=== PATIENT | male | born 1950 | race Caucasian/White ===

== ENCOUNTER 2019-10-14 10:29 | Outpatient (CLI) | payer MEDICARE, SELFPAY ==
[2019-10-14 11:54] LABS: Alanine Aminotransferase 25 U/L (16-63); Albumin Level 3.9 g/dL (3.4-5.0); Alkaline Phosphatase 70 U/L (46-116); Anion Gap 11.2 mmol/L (7-16); Aspartate Amino Transferase 19 U/L (15-37); Bilirubin,Total 0.3 mg/dL (0.00-1.00); Blood Urea Nitrogen 23 mg/dL (7-18); Calcium 8.8 mg/dL (8.5-10.1); Carbon Dioxide 30 mmol/L (21-32); Chloride 102 mmol/L (98-108); Estimated Glomerular Filt Rate 49; Glucose 108 mg/dL (70-99); Osmolality Calculated 292 mOsm/kg (285-295); Potassium 4.2 mmol/L (3.5-5.1); Sodium 139 mmol/L (136-145); Total Protein 6.9 g/dL (6.4-8.2)
== END 2019-10-14 10:30 | disposition home or self-care (01) ==
PROVIDERS: PCP Internal Medicine; Visit Provider Urology
DX: C67.2 Malignant neoplasm of lateral wall of bladder (principal); C67.4 Malignant neoplasm of posterior wall of bladder; C67.8 Malignant neoplasm of overlapping sites of bladder; N40.1 Benign prostatic hyperplasia with lower urinary tract symptoms
CPT/HCPCS: 36415; 80053; 84153

== ENCOUNTER 2022-05-10 08:11 | Outpatient (CLI) | payer MEDICARE, SELFPAY ==
[2022-05-10 09:03] LABS: Alanine Aminotransferase 18 U/L (16-63); Albumin Level 3.8 g/dL (3.4-5.0); Alkaline Phosphatase 60 U/L (46-116); Anion Gap 4 mmol/L (8-16); Aspartate Amino Transferase 17 U/L (15-37); Bilirubin,Total 0.6 mg/dL (0.00-1.00); Blood Urea Nitrogen 27 mg/dL (7-18); Calcium 8.8 mg/dL (8.5-10.1); Carbon Dioxide 30 mmol/L (21-32); Chloride 102 mmol/L (98-108); Estimated Glomerular Filt Rate 43; Glucose 96 mg/dL (70-99); Osmolality Calculated 287 mOsm/kg (285-295); Potassium 4.6 mmol/L (3.5-5.1); Prostate Specific Antigen 1.1 ng/mL (< OR = 4.0); Sodium 136 mmol/L (136-145); Total Protein 6.6 g/dL (6.4-8.2)
== END 2022-05-10 08:12 | disposition home or self-care (01) ==
LOC: CHSLAB 08:15
PROVIDERS: PCP Internal Medicine; Visit Provider Urology
DX: N40.1 Benign prostatic hyperplasia with lower urinary tract symptoms (principal)
CPT/HCPCS: 36415; 80053; 84153

== ENCOUNTER 2022-06-28 01:48 | Day surgery (SDC) | payer MEDICARE, OTHER, SELFPAY ==
[2022-06-25 12:54] VITALS: BMI 27.5
[2022-06-28 08:26] VITALS: BP 140/91; PULSE 69; RESP 20; TEMP 35.9; O2SAT 100
[2022-06-28] MEDS: LACTATED RINGERS 1,000 ML 150 ML IV CONT (08:30)
--- NOTE | 2022-06-28 09:10 | P.PNAN_ITS ---
Anes - Initial Pre Proc Eval Procedure: Operation Date: 06/28/22 09:30 Proposed Procedures p Colonoscopy - Sandro Angel DO Date/Time: 06/28/22 09:10 Surgeon: Sandro Angel DO Pre Op Diagnosis: sigmoid adenoma Patient Data Age: 71 Gender: M Height: 1.91 m Weight: 98.2 kg Last Vital Signs Temp 96.7 F L 06/28/22 08:26 Pulse 69 06/28/22 08:26 Resp 20 06/28/22 08:26 BP 140/91 H 06/28/22 08:26 Pulse Ox 100 06/28/22 08:26 O2 Del Method Room Air 06/28/22 08:26 Allergies Allergy/AdvReac Type Severity Reaction Status Date / Time egg Allergy Other Verified 06/28/22 08:25 Penicillins Allergy Other Verified 06/28/22 08:25 Home Medications Medication Instructions Recorded Confirmed Type aspirin 81 mg tablet 81 mg PO DAILY 06/25/22 06/28/22 History finasteride 5 mg tablet 5 mg PO DAILY 06/25/22 06/28/22 History lisinopril 20 1 tablet PO DAILY 06/25/22 06/28/22 History mg-hydrochlorothiazide 12.5 mg tablet Patient hx anesthesia problems: none Family hx anesthesia problems: none Results Review: All pre-operative results and documents have been reviewed as part of the pre-operative evaluation. [facility] Social History Social History Smoking status: Former smoker Tobacco type: cigarettes Alcohol intake: current Drinks per week: 3 Alcohol use details: beer Substance use type: does not use Living arrangements: with family Spiritual care concerns: No Anes - Eval Final PreProcedure Day of Procedure 06/28/22 09:10 Patient weight: overweight Heart: regular rate and rhythm Lungs: clear to auscultation Airway: Mallampati scale class II Neurological: alert and oriented Last oral intake: >/= 8 hours ASA classification: III Emergent: no Anesthetic plan: proceed Anesthesia type and monitoring: general GIVS and standard monitoring Results Review: All pre-operative results and documents have been reviewed as part of the pre- operative evaluation. Informed Consent: The patient's anesthetic plan and its attendant risks and benefits were discussed with the patient/family/POA. Questions were solicited and answers provided to the satisfaction of the patient/family/POA.
--- NOTE | 2022-06-28 09:48 | PM.IMHP ---
H&P: HPI History of Present Illness Date/Time: 06/28/22 09:48 Chief Complaint: history of colon polyps Narrative: this is a 71-year-old man who presents for colonoscopy. His last colonoscopy was 5 years ago and polyps were removed at that time. He denies any other changes since his last colonoscopy. He denies family history of colon cancer. Review of Systems Review of Systems: All systems reviewed & are unremarkable except as noted in HPI and below Constitutional: Constitutional: Denies chills, Denies fever(s), Denies headache(s) and Denies weight loss Eyes: Eyes: Denies change in vision ENT: Denies dizziness, Denies headache(s), Denies neck mass and Denies throat swelling Cardiovascular: Cardiovascular: Denies chest pain, Denies lightheadedness and Denies dyspnea Respiratory: Respiratory: Denies cough, Denies dyspnea and Denies wheezing Gastrointestinal: Gastrointestinal: Denies abdominal pain, Denies change in bowel habits, Denies nausea and Denies vomiting Genitourinary: Genitourinary: Denies hematuria and Denies dysuria Musculoskeletal: Musculoskeletal: Reports as per HPI Integumentary/Breasts: Skin/Breast: Reports as per HPI Neurologic: Denies dizziness and Denies headache(s) Allergic/Immunologic: Allergic/Immunologic: Denies throat swelling and Denies wheezing PMFSH Social History Social History Smoking status: Former smoker Tobacco type: cigarettes Alcohol intake: current Drinks per week: 3 Alcohol use details: beer Substance use type: does not use Living arrangements: with family Spiritual care concerns: No Meds Home Medications and Allergies Home Medications Medication Instructions Recorded Confirmed Type aspirin 81 mg tablet 81 mg PO DAILY 06/25/22 06/28/22 History finasteride 5 mg tablet 5 mg PO DAILY 06/25/22 06/28/22 History lisinopril 20 1 tablet PO DAILY 06/25/22 06/28/22 History mg-hydrochlorothiazide 12.5 mg tablet Allergies Allergy/AdvReac Type Severity Reaction Status Date / Time egg Allergy Other Verified 06/28/22 08:25 Penicillins Allergy Other Verified 06/28/22 08:25 Vital Signs Vital Signs - 24 hr 06/28/22 08:26 Temperature 35.9 C L Pulse Rate 69 Respiratory Rate 20 Blood Pressure 140/91 H Pulse Oximetry 100 Oxygen Delivery Room Air Exam Const: General: no acute distress and alert Orientation/consciousness: patient oriented x3 HENMT: Head: normocephalic and atraumatic Ears: hearing grossly normal bilaterally Face/Nose/Sinus: Normal nares present Mouth: Yes Normal oral and palatal mucosa present Eyes: Periorbital: periorbital findings normal Sclera: sclerae normal EOM: EOMs intact bilaterally Neck: Neck: normal visual inspection, no lymphadenopathy and trachea midline Chest: Chest palpation & inspection: normal inspection of the chest Resp: Effort & Inspection: normal respiratory effort Auscultation: clear to auscultation bilaterally Cardio: Jugular venous distension: no JVD Rate: regular rate Rhythm: regular rhythm Heart sounds: S1 normal heart sound present and S2 normal heart sound present Peripheral pulses: Peripheral pulses 2+ throughout GI: Inspection: normal to inspection GI Palp: Yes Soft to palpation, No Tenderness to palpation present (GI), No Guarding due to palpation present (GI) and No Rebound tenderness present Percussion: Yes normal to percussion Auscultation: normal bowel sounds : General: Yes no CVA tenderness Back/Spine/Pelvis: Back: no CVA tenderness Neuro: General: patient oriented x3, no focal motor deficits and CN's II-XI intact bilaterally Cognition (Neuro): normal cognition Speech: normal speech Motor exam (neuro): 5/5 motor strength present throughout Extrem: General: capillary refill normal and no clubbing, cyanosis or edema Assessment and Plan Assessment and plan (1) History of colon polyps: Code(s): Z86.010 - Personal history of colonic polyps Status:
[2022-06-28 10:25] VITALS: BP 107/92; PULSE 64; RESP 21; O2SAT 100
[2022-06-28 10:35] VITALS: BP 122/78; PULSE 63; RESP 24; O2SAT 100
[2022-06-28 10:45] VITALS: BP 130/87; PULSE 60; RESP 24; O2SAT 100
== END 2022-06-28 10:52 | disposition home or self-care (01) ==
PROVIDERS: PCP Internal Medicine; Visit Provider Surgery
PROC: 0DJD8ZZ Inspection of Lower Intestinal Tract, Via Natural or Artificial Opening Endoscopic (ICD-10-PCS; CPT 45378; principal; 2022-06-28 09:30)
DX: Z12.11 Encounter for screening for malignant neoplasm of colon (principal); D17.5 Benign lipomatous neoplasm of intra-abdominal organs; K57.30 Diverticulosis of large intestine without perforation or abscess without bleeding; K64.8 Other hemorrhoids; Z86.010 Personal history of colon polyps; Z79.82 Long term (current) use of aspirin; Z87.891 Personal history of nicotine dependence
CPT/HCPCS: 45385; 88305; J2704; J7120

== ENCOUNTER 2023-05-13 08:07 | Outpatient (CLI) | payer MEDICARE, SELFPAY ==
[2023-05-13 09:20] LABS: Alanine Aminotransferase 18 U/L (16-63); Alkaline Phosphatase 51 U/L (46-116); Anion Gap 5 mmol/L (8-16); Aspartate Amino Transferase 17 U/L (15-37); Bilirubin,Total 0.6 mg/dL (0.00-1.00); Blood Urea Nitrogen 27 mg/dL (7-18); Calcium 8.8 mg/dL (8.5-10.1); Carbon Dioxide 32 mmol/L (21-32); Chloride 101 mmol/L (98-108); Estimated Glomerular Filt Rate 45; Glucose 96 mg/dL (70-99); Osmolality Calculated 291 mOsm/kg (285-295); Potassium 4.5 mmol/L (3.5-5.1); Sodium 138 mmol/L (136-145); Total Protein 6.7 g/dL (6.4-8.2)
== END 2023-05-13 08:08 | disposition home or self-care (01) ==
LOC: CHSLAB 08:13
PROVIDERS: PCP Internal Medicine; Visit Provider Urology
DX: N40.1 Benign prostatic hyperplasia with lower urinary tract symptoms (principal)
CPT/HCPCS: 36415; 80053; 84153

== ENCOUNTER 2024-06-16 08:15 | Outpatient (CLI) | payer MEDICARE, SELFPAY ==
--- OUTSIDE RECORDS SUMMARY | 2024-06-16 08:38 | XMS_ITS | Referral Summary ---
Author Organization [facility] Address [address] [place] [address] Care Team Providers Care Van Owner Operator Name Role Phone Ran Espinoza MD Primary Care Provider [phone] Encounters Date Type Department Care Team Description 05/20/2024 10:20 AM TURRET PRESS OPERATOR Office Visit [facility] Movement Disorders [address] [facility] [address] [place] [address] [place] [address] Bethany Rosales MD PhD Parkinson's disease without dyskinesia or fluctuating manifestations (HCC) (Primary Dx); Tremor of both hands from Last 3 Months Allergies Active Allergy Reactions Criticality Noted Date Comments Eggshell Membrane Swelling Medium 05/01/2023 Penicillin Swelling Medium 05/01/2023 Medications amLODIPine (NORVASC) 2.5 mg tablet Take 1 tablet (2.5 mg total) by mouth daily 3 Active finasteride (PROSCAR) 5 mg tablet Take 1 tablet (5 mg total) by mouth daily 4 Active lisinopril-hydr oCHLOROthiazide (ZESTORETIC) 20-12.5 mg per tablet Take 1 tablet by mouth daily 4 Active aspirin 81 mg chewable tablet Take 1 tablet (81 mg total) by mouth daily Active mirtazapine (REMERON) 7.5 mg tablet Take 1 tablet (7.5 mg total) by mouth nightly 90 tablet 3 5 05/20/19 26 Active carbidopa-levod opa (SINEMET) 25-100 mg per tabletIndicatio ns:Idiopathic Parkinsonism,Pa rkinsonism Take 3 tablets at 8am, 2 tablet at noon, 3 tablets at 6pm (dinner time) 720 tablet 3 5 Active carbidopa-levod opa (SINEMET) 25-100 mg per tabletIndicatio ns:Parkinsonism Take 2 tablets by mouth 3 (three) times a day 540 tablet 3 4 05/20/19 25 Discontinu ed(Reorder ) mirtazapine (REMERON) 7.5 mg tablet Take 1 tablet (7.5 mg total) by mouth nightly 90 tablet 3 4 05/20/19 25 Discontinu ed(Reorder ) Active Problems Problem Noted Date Diagnosed Date Parkinson's disease without dyskinesia or fluctuating manifestations 05/01/2023 Assessment & Plan (05/23/2024 11:34 AM TURRET PRESS OPERATOR): Mr. Luis Manuel Martinez is a 73 y.o. male, who presents for evaluation of tremor. He developed resting tremor on the left side 1.5 years ago in 2021. 8 months ago, he later developed impaired slow stooped gait. As far as non-motor symptoms, he has depression and cognitive impairment. There is no family history of parkinsonism. On examination, there is mild to moderate parkinsonism, more evident in the left side. He restarted levodopa but is only taking 500 units of LEDD (2 in the morning and 3 at night). We discussed that this is a sub-optimal regimen since she is mostly sleeping at night and discussed scheduling levodopa with meals. He will watch and see if levodopa during the day helps with his motor symptoms. At this time, he has mild cognitive impairment and does not have any hallucinations. Mood is well controlled with mirtazapine. Plan: PD. Carbidopa/levodopa 25-100mg: Until June 06 - Take 2.5 tablets at 8am, 0.5 tablet at noon, 3 tablets at 6pm (dinner time) June 06 : Take 3 tablets at 8am, 1 tablet at noon, 3 tablets at 6pm (dinner time) June 23 : Take 3 tablets at 8am, 1.5 tablet at noon, 3 tablets at 6pm (dinner time) July 07 : Take 3 tablets at 8am, 2 tablet at noon, 3 tablets at 6pm (dinner time) See how you are doing on this regimen. Do you have too many dyskinesias? Is the tremor better? Please report back to me (MyChart or phone call). Watch for light-headedness with standing and hallucinations. Continue to exercise (bowling is good!) Continue mirtazapine Assessment & Plan (09/18/2023 12:01 PM CDT): Mr. Luis Manuel Martinez is a 72 y.o. male, who presents for evaluation of tremor. He developed resting tremor on the left side 1.5 years ago in 2021. 8 months ago, he later developed impaired slow stooped gait. As far as non-motor symptoms, he has depression and cognitive impairment. There is no family history of parkinsonism. On examination, there is mild to moderate parkinsonism, more evident in the left side. He had an insufficient trial of levodopa and felt that it was giving him a headache at 2 tablets TID. He started taking it 2 tablets at night instead. We discussed doing a retrial of the levodopa to see if he could tolerate it better. History and examination are compatible with PD. The absence of ataxia, significant dysautonomia, diminished eye movements. 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 . We discussed disease pathophysiology and treatment strategies for PD. We discussed the importance of physical exercise and its positive effects in disease progression. For his poor mood, we will treat wth mirtazapine as they is helpful for insomnia at night as well. This could alleviate the daily analgesic use which could be contributing to analgesic overuse headache. He also has mild vibratory sense and pinprick loss in his feet. We will defer EMG/NCS at this time. However, we will order first tier neuropathy labs to look for any reversible causes. Plan: PD. Start mirtazapine today at night 7.5mg. Continue for 2 weeks. This is for mood. After 1 month, should notice that easier to sleep at night and mood is less depressed. If you do not feel that this is enough, call us and we will increase this dose to 15mg. After 2 weeks, start carbidopa-levodopa again for tremor and balance. 0.5 tab at 7 a.m.; 0.5 tab at Noon; 0.5 tab at 5 pm for 2 wks, then 1 tab at each dose for 2 wks; then 1.5 tab at each dose after 2 weeks, and 2 tabs at each dose. If at any time, you have side effects, go down to what you are taking previously. Please watch and see if tremor and balance are improved. If you get nauseated or headache, please call. Potential medication side effects were discussed during the encounter. Assessment & Plan (05/06/2023 10:03 AM TURRET PRESS OPERATOR): Mr. Luis Manuel Martinez is a 72 y.o. male, who presents for evaluation of tremor. He developed resting tremor on the left side 1.5 years ago in 2021. 8 months ago, he later developed impaired slow stooped gait. As far as non-motor symptoms, he has depression and cognitive impairment. He never tried levodopa before. There is no family history of parkinsonism. On examination, there is mild to moderate parkinsonism, more evident in the left side. History and examination are compatible with PD. The absence of ataxia, significant dysautonomia, diminished eye movements. 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 We will get a brain MRI to look for other Parkisonism-plus syndromes, though they are less likely given the clinical history. We discussed disease pathophysiology and treatment strategies for PD. We discussed the importance of physical exercise and its positive effects in disease progression. He also has mild vibratory sense and pinprick loss in his feet. We will defer EMG/NCS at this time. However, we will order first tier neuropathy labs to look for any reversible causes. Plan: PD. - Start carbidopa-levodopa 25/100 mg with titration to 2 tablets three times a day. Titration schedule was given. Additional doses changes may be needed. - MRI brain without contrast. . - Establish a exercise routine. - Please mail APDA packet. - Start duloxetine 30mg daily for low mood. 2. Neuropathy as evident by diminished vibatory/pinprick sensation - first tier neuropathic labs - defer EMG/NCS for now Potential medication side effects were discussed during the encounter. 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 Not on file Not on file Not on file Last Filed Vital Signs Vital Sign Reading Time Taken Comments Blood Pressure 131/80 05/20/2024 10:14 AM TURRET PRESS OPERATOR Pulse 87 05/20/2024 10:14 AM TURRET PRESS OPERATOR Temperature - - Respiratory Rate - - Oxygen Saturation - - Inhaled Oxygen Concentration - - Weight 103.8 kg (228 lb 12.8 oz) 2024 10:14 AM TURRET PRESS OPERATOR Height 190.5 cm (6' 3 ) 05/20/2024 10:1 4 AM TURRET PRESS OPERATOR Body Mass Index 28.6 05/20/2024 10:14 AM TURRET PRESS OPERATOR Plan of Treatment Not on [place] [address] [facility] MEDICARE [facility] [place] Care Teams Van Owner Operator Relationship Specialty Start Date End Date Ran Espinoza MD PCP - General Internal Medicine 12/18/22
--- OUTSIDE RECORDS SUMMARY | 2024-06-16 08:38 | XMS_ITS | Clinical Summary ---
Author Organization [facility] Address [address] [place] [id number] Care Team Providers Care Group Leader Wafer Polishing Name Role Phone Unavailable Primary Care Provider Unavailabl e Social History Tobacco Use Types Packs/Day Years Used Date Smoking Tobacco: Never Assessed Sex and Gender Information Value Date Recorded Sex Assigned at Not on file Legal Sex Male 10:34 PM WALL TO WALL CARPET INSTALLER Gender Identity Not on file Sexual Orientation Not on file Plan of Treatment Health Maintenance Due Date Last Done Comments Colorectal Cancer Screening Colonoscopy (10 Years) 1950 Hepatitis C 11/26/1967 DTaP, Tdap and Td Vaccines ( 1 - Tdap) 1968 Zoster Vaccines (1 of 2) 11/26/1999 Pneumococcal Vaccine: 65+ Ye ars (1 of 1 - PCV) 2014 COVID-19 Vaccine ( - 2023-2 5 season) 2023 Influenza Adult (#1) 2023 RSV Immunization or 60+ Years (1 - 1-dose 75+ series) 2024 Meningococcal B Vaccine Aged Out No l onger eligible based on patient's age to complete this topic Meningococcal Vaccine Aged Out No deie rudy eligible based on patient's age to complete this topic RSV Immunizations Under 20 Months Aged Out No longer eligible based on patient's age to complete this topic
--- OUTSIDE RECORDS SUMMARY | 2024-06-16 08:38 | XMS_ITS | Clinical Summary ---
Author Organization [facility] Address [address] [place] [address] Care Team Providers Care Grinder Chipper Name Role Phone Ran Espinoza MD Primary Care Provider [phone] Allergies Active Allergy Reactions Criticality Noted Date [...] mouth nightly 90 tablet 3 4 05/20/19 Discontinu ed(Reorder ) Active Problems Problem Noted Date Diagnosed Date Parkinson's disease without dyskinesia or fluctuating manifestations 05/01/2023 Assessment & Plan (05/23/2024 11:34 AM HOUSE DETECTIVE): Mr. Luis Manuel Martinez is a 73 [...] encounter. Assessment & Plan (05/06/2023 10:03 AM HOUSE DETECTIVE): Mr. Luis Manuel Martinez is a 72 [...] the encounter. 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 Medical History Medical History Date Comments Hypertension History of bladder cancer Family History Medical History Relation Name Comments Dementia Neg Hx Parkinsonism Neg Hx Tremor Neg Hx Social History Tobacco Use Types Packs/Day Years Used Date Smoking Tobacco: Former Cigarettes Tobacco Cessation:Counseling Given: Not Answered Comments:Since 1194 Sex and Gender Information Value Date Recorded Sex Assigned at Not on file Legal Sex Male 8:55 AM HOUSE DETECTIVE Gender Identity Not on file Sexual Orientation Not on file 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 Not on file Not on file Not on file Obstetrics History Last Filed Vital Signs Vital Sign Reading Time Taken Comments Blood Pressure 131/80 05/20/2024 10:14 AM HOUSE DETECTIVE Pulse 87 05/20/2024 10:14 AM HOUSE DETECTIVE Temperature - - Respiratory Rate - - Oxygen Saturation - - Inhaled Oxygen Concentration - - Weight 103.8 kg (228 lb 12.8 oz) 2024 10:14 AM HOUSE DETECTIVE Height 190.5 cm (6' 3 ) 05/20/2024 10:1 4 AM HOUSE DETECTIVE Body Mass Index 28.6 05/20/2024 10:14 AM HOUSE DETECTIVE Plan of Treatment Health Maintenance Due Date Last Done Comments Colon Cancer Screening-Colonoscopy 1950 Fall Risk Assessment 1950 Hepatitis C Screening 1950 Hepatitis B Screening 11/26/1967 Pneumococcal vaccine 65+ (1 of 1 - PCV) 11/26/1999 Zoster Vaccine (1 of 2) 11/26/1999 Abdominal Aortic Aneurysm (A AA) Screen 2014 Well Visit 65+ 2014 Covid-19 Vaccine (5 - 2023-2 5 season) 2023 01/24/2022, 03/24/2021, 05/18/2020, Additional history exists Influenza Vaccine (#1) 2023 Depression Screening 05/01/2024 05/01/2023 DTaP/Tdap/Td Vaccine (2 - Td or Tdap) 03/24/2032 03/24/2022 Insurance MEDICARE [facility] MEDICARE [facility] Care Teams Grinder Chipper Relationship Specialty Start Date End Date Ran Espinoza MD PCP - General Internal Medicine 12/18/22
[2024-06-16 09:10] LABS: Alanine Aminotransferase 17 U/L (16-63); Albumin Level 3.9 g/dL (3.4-5.0); Alkaline Phosphatase 95 U/L (46-116); Anion Gap 6 mmol/L (4-12); Aspartate Amino Transferase 15 U/L (15-37); Bilirubin,Total 0.4 mg/dL (0.00-1.00); Blood Urea Nitrogen 25 mg/dL (7-18); Carbon Dioxide 31 mmol/L (21-32); Chloride 104 mmol/L (98-108); Estimated Glomerular Filt Rate 46; Glucose 100 mg/dL (70-99); Osmolality Calculated 296 mOsm/kg (285-295); Potassium 4.4 mmol/L (3.5-5.1); Prostate Specific Antigen 1.1 ng/mL (< OR = 4.0); Sodium 141 mmol/L (136-145); Total Protein 6.6 g/dL (6.4-8.2)
== END 2024-06-16 08:16 | disposition home or self-care (01) ==
LOC: CHSLAB 08:19
PROVIDERS: PCP Internal Medicine; Visit Provider Urology
DX: N40.1 Benign prostatic hyperplasia with lower urinary tract symptoms (principal)
CPT/HCPCS: 36415; 80053; 84153